=== PATIENT | female | born 1975 | race Caucasian/White ===

== ENCOUNTER 2017-04-26 14:02 | Emergency (ER) | payer OTHER | END 2017-04-26 15:11 | disposition home or self-care (01) | LOC: E/R 14:02 | DX: G43.909 Migraine, unspecified, not intractable, without status migrainosus (principal) | CPT/HCPCS: 99283; Z7502 ==

== ENCOUNTER 2017-07-22 18:35 | Emergency (ER) | payer OTHER ==
[2017-07-22] MEDS: ONDANSETRON (ODT) 4 MG TAB ODT (19:46)
[2017-07-22] MEDS: SUMATRIPTAN 50 MG TAB PO (19:47)
== END 2017-07-22 20:05 | disposition home or self-care (01) ==
LOC: FTE 18:35
DX: R51 Headache (principal); Z79.82 Long term (current) use of aspirin
CPT/HCPCS: 99284; Z7502

== ENCOUNTER 2017-10-17 19:00 | Emergency (ER) | payer OTHER ==
[2017-10-17] MEDS: KETOROLAC 60 MG INJ IM (21:50)
[2017-10-17] MEDS: ONDANSETRON (ODT) 4 MG TAB ODT (21:50)
== END 2017-10-17 22:10 | disposition home or self-care (01) ==
LOC: FTE 19:00
DX: G43.909 Migraine, unspecified, not intractable, without status migrainosus (principal); Z79.82 Long term (current) use of aspirin
CPT/HCPCS: 81025; 96372; 99284-25